=== PATIENT | female | born 1955 | race Caucasian/White ===

== ENCOUNTER 2022-11-28 06:12 | Observation (INO) ==
--- NOTE | 2022-11-16 11:58 | PAT Medication Instructions ---
Medication Instructions Date of Service November 16, 2022 Home Medications Medication Instructions Recorded Dee Garcia #1 ea 11/10/22 estradiol 1 mg tablet 1 mg PO HS fluvoxamine 100 mg tablet 100 mg PO TID meloxicam 15 mg tablet 15 mg PO QAM simvastatin 5 mg tablet 5 mg PO HS vit C,E,zinc,copper-jzzes5z 250 mg-lutein 5 mg-zeaxanthin 1 mg capsule (Adult 50 Plus Eye Health) 1 cap PO DAILY Cbd Gummies 1 dose PO QAM calcium carbonate 600 mg calcium (1,500 mg) tablet (Calcium) 1,200 mg PO QAM lorazepam 1 mg tablet 1 mg PO BID PRN Anxiety multivitamin 1 tab PO QAM peg [id number]-zduomnud 1 %-0.2 %-0.2 % eye drops 2 drp ophthalmic (eye) BID PRN Dry Eyes ASK your surgeon for instructions meloxicam 15 mg tablet 15 mg PO QAM ASK your prescriber and surgeon estradiol 1 mg tablet 1 mg PO HS STOP taking 2 weeks before surgery vit C,E,zinc,copper-chwfm3s 250 mg-lutein 5 mg-zeaxanthin 1 mg capsule (Adult 50 Plus Eye Health) 1 cap PO DAILY DO NOT take the morning of surgery Cbd Gummies 1 dose PO QAM calcium carbonate 600 mg calcium (1,500 mg) tablet (Calcium) 1,200 mg PO QAM multivitamin 1 tab PO QAM Take morning of surgery With a small sip of water, OTHERWISE NOTHING TO EAT OR DRINK AFTER MIDNIGHT: fluvoxamine 100 mg tablet 100 mg PO TID lorazepam 1 mg tablet 1 mg PO BID PRN Anxiety (if needed) peg [id number]-agrmkvoj 1 %-0.2 %-0.2 % eye drops 2 drp ophthalmic (eye) BID PRN Dry Eyes (if needed) Take evening before surgery fluvoxamine 100 mg tablet 100 mg PO TID simvastatin 5 mg tablet 5 mg PO HS lorazepam 1 mg tablet 1 mg PO BID PRN Anxiety (if needed) peg 878-ohzunyfgtwps-lhvvrvoo 1 %-0.2 %-0.2 % eye drops 2 drp ophthalmic (eye) BID PRN Dry Eyes (if needed) Other Notes If you have any questions please call us at [phone] or [phone] or [phone] or [phone]
--- NOTE | 2022-11-18 11:44 | Anesthesiology Consultation ---
Date of Service November 18, 2022 Assessment & Plan (1) Encounter for pre-operative examination: - COVID screening: Per assessment on 11/18: No known COVID-19 positive contacts or current COVID-19 related symptoms. Travel screen negative. Patient vaccinated. At surgeon discretion if preop Covid testing being done. - Anesthesia concern: Patient does not wish to "hear or feel" anything perioperatively- requests deeper sedation if possible. Questions/concerns addressed. To discuss further AM DOS. - Outpatient joint assessment: Pt currently scheduled for inpatient pathway. If surgeon requests review for outpatient joint pathway, determination for eligibility would be pending LBBB evaluation. - Abnormal preop EKG: Per patient, remote hx of LBBB diagnosis many years ago (approximately 15 years ago) s/p unremarkable cardiac evaluation and stress testing. Attempts to obtain previous cardiac evaluation/stress testing unsuccessful. Patient scheduled for preop cardiac evaluation ([facility], appt 11/23). Chart Review Chart Review: Patient seen in Pre Admission Testing Teaching & Discussion Pre-Anesthesia Teaching/Discussion Notes: Instructed NPO after midnight before surgery,except medications with 15 cc of water. Medication instructions provided according to the PAT guidelines. History Surgery Operation Date: 11/28/22 08:50 Proposed Procedures p Right Total Knee Arthroplasty - Ebenezer Molina MD Height/Weight Height: 5 ft 10 in Weight: 95.3 kg Allergies Allergy/AdvReac Type Severity Reaction Status Date / Time latex Allergy Unknown Rash Verified 11/16/22 10:07 Penicillins Allergy Unknown Hives Verified 11/16/22 10:05 triethanolamine Allergy Unknown Rash Verified 11/16/22 10:07 bandaid Allergy Unknown "Removes Uncoded 11/16/22 11:18 skin" Topical antibiotics Allergy Itching Uncoded 11/18/22 12:10 Medications Home Medications Medication Instructions Recorded Confirmed Last Taken estradiol 1 mg tablet 1 mg PO HS 06/11/20 11/16/22 Unknown fluvoxamine 100 mg tablet 100 mg PO TID 06/11/20 11/16/22 Unknown meloxicam 15 mg tablet 15 mg PO QAM 06/11/20 11/16/22 Unknown simvastatin 5 mg tablet 5 mg PO HS 06/11/20 11/16/22 Unknown vit C,E,zinc,copper-awngu7q 250 1 cap PO DAILY 06/11/20 11/16/22 Unknown mg-lutein 5 mg-zeaxanthin 1 mg capsule (Adult 50 Plus Eye Health) Dee Walker #1 ea 11/10/22 11/10/22 Unknown Cbd Gummies 1 dose PO QAM 11/16/22 11/16/22 Unknown calcium carbonate 600 mg calcium 1,200 mg PO QAM 11/16/22 11/16/22 Unknown (1,500 mg) tablet (Calcium) lorazepam 1 mg tablet 1 mg PO BID PRN Anxiety 11/16/22 11/16/22 Unknown multivitamin 1 tab PO QAM 11/16/22 11/16/22 Unknown peg [id number]-[id number]-xkcgvrqs 1 2 drp ophthalmic (eye) BID PRN Dry 11/16/22 11/16/22 Unknown %-0.2 %-0.2 % eye drops Eyes Past Medical History Medical History Acid reflux Anxiety History of COVID-2019- loss of taste > resolved History of left bundle branch block (LBBB) Per patient, noted remotely approximately 15 years ago s/p unremarkable cardiac evaluation including a stress test Hx of renal calculi Left knee DJD OCD (obsessive compulsive disorder) Sensitive skin "cannot tolerate fragrances" > itching Exercise / Class Metabolic Activity II 4-5 Yardwork/Stairs/Walk up hill (one FS (no CP, no SOB)) Past Family History Family History Other No family history of adverse response to anesthesia Past Surgical History Surgical History H/O arthroscopy of right knee H/O breast surgery Fibroids removal H/O: hysterectomy History of appendectomy History of removal of both ovaries Hx of tonsillectomy Hx of wisdom tooth extraction Past Anesthesia History No Hx of Anesthesia Complications and No Family Hx of Anesthesia Complications History of PONV No Hx of PONV and No Hx of Motion Sickness Social History Smoking Status: Never smoker Do You Dip or Chew Tobacco: No Hx Alcohol Use: Yes (one or twice per month) Hx Substance Use: No substance use type: does not use Review of Systems Patient denies chest pain, shortness of breath, dyspnea on exertion, fever, chills, cough, wheezing, palpitations. Physical Exam Vital Signs VITALS BP 124/88 P 72 TEMP 97.9 SP02 98%RA RESP 16 PHYSICAL Full cervical extension range of motion. Full TMJ range of motion. TMD 3 finger breaths Mallampati Score 2 Dentition: intact, lower left side cap Lungs: clear throughout to auscultation Cardiac: regular rate and rhythm, no murmurs noted Spine: normal Carotid arteries: negative bruit Extremities: no LE edema Lab Results Anesthesia Preop Results Results Anesthesia Widget: WBC 7.53 K/ul (4.8-10.8) 11/18/22 Hgb 14.2 g/dl (12.0-16.0) 11/18/22 Hct 43.4 % (37.0-47.0) 11/18/22 Plt 240 K/uL (130-400) 11/18/22 Na 141 mmol/L (136-145) 11/18/22 K 4.4 mmol/L (3.5-5.1) 11/18/22 Cl 107 mmol/L (98-107) 11/18/22 CO2 30 mmol/L (21-32) 11/18/22 BUN 20 mg/dl (6-23) 11/18/22 Creat 0.71 mg/dl (0.6-1.2) 11/18/22 Glucose Level 96 mg/dl (70-99(Fasting)) 11/18/22 PT 10.6 Seconds (9.0-12.0) 11/18/22 PTT 25.4 Seconds (21.0-31.0) 11/18/22 INR 1.0 (0.9-1.1) 11/18/22 Blood Type A Negative 11/18/22 Antibody Screen NEGATIVE 11/18/22 Testing Electrocardiogram Date: 11/18/22 NSR at 64bpm. LAD. LBBB. Chest X-Ray Date: 11/18/22 FINDINGS: No lines and tubes are seen. Calcified aortic knob is seen. The lungs are clear. No evidence of pleural effusion or pneumothorax. IMPRESSION: No acute chest disease. COVID-19 Risk Screen Screening Information COVID-19 Screen Date: 11/18/22 Exposure 21 Days Family/Household +COVID Last 21 Days: No Exposure 10 Days Any COVID Exposure Last 10 Days: No Symptoms Last 10 Days Experienced COVID Sx Last 10 Days: No + COVID 0-90 Days COVID + in Last 0-90 Days: No
[~2022-11-28 06:12] MED LIST: ACETAMINOPHEN 500 MG TAB PO SCH; ALLERGY Noted to ORDERED Medication SCH; BUPIVACAINE LIPOSOME/PF 266 MG, BUPIVACAINE/EPINEPHRINE 50 ML, SODIUM CHLORIDE 0.9% PF ... INFIL SCH; CeleBREX 200 MG CAP PO SCH; FAMOTIDINE 20 MG TAB PO SCH; LR 15ML/HR IV SCH; LR 60ML/HR IV SCH; METOCLOPRAMIDE HCL 10 MG TABLET PO SCH; Scopolamine 1 MG TDSY TD SCH; TRANEXAMIC ACID 1,000 MG **IV Intra-op IV SCH; ceFAZolin 2000MG 2,000 MG/15 ML SYR IV SCH; dexAMETHasone**PF** 10 MG/ML VIAL IV SCH
[2022-11-28] MEDS ORDERED: ROPIVACAINE 0.5% 5 MG/ML 30 ML VIAL ONE (06:18)
[2022-11-28] MEDS ORDERED: BUPIVACAINE 0.5 % 5 MG/1 ML PF 10ML VIAL ONE (06:18)
--- NOTE | 2022-11-28 06:54 | History & Physical Bridge Note ---
Date of Service November 28, 2022 History & Physical Bridge Note I have examined the patient, reviewed the History & Physical and in the interval since the performance of the History & Physical I have noted the following changes of clinical significance: no changes noted
[2022-11-28] MEDS ORDERED: Nursing to Pharmacy Communication SCH (07:15)
[2022-11-28] MEDS ORDERED: MIDAZOLAM HCL 1 MG/ML 2ML VIAL ONE (07:25)
[2022-11-28] MEDS ORDERED: ATROPINE SULFATE 0.1 MG/ML 10ML SYR IV PRN (08:11)
[2022-11-28] MEDS ORDERED: ePHEDrine sulfate 50 MG/ML AMP IV PRN (08:11)
[2022-11-28] MEDS ORDERED: fentaNYL citrate PF 100 MCG/2 ML VIAL IV PRN (08:11)
[2022-11-28] MEDS ORDERED: ONDANSETRON INJ 2 MG/ML 2 ML VIAL IV PRN ×2 (08:11→12:20)
[2022-11-28] MEDS ORDERED: BUPIVACAINE/EPINEPHRINE 0.25% 1:200,000 30 ML VIAL ONE (08:47)
[2022-11-28] MEDS ORDERED: SODIUM CHLORIDE 0.9% PF 50 ML VIAL ONE (08:47)
[2022-11-28] MEDS ORDERED: BUPIVACAINE LIPOSOME 1.3% 266 MG/20 ML VIAL ONE (08:47)
[2022-11-28] MEDS ORDERED: PROPOFOL IV EMULSION 10 MG/ML 20 ML VIAL IV ONE (08:53)
[2022-11-28] MEDS ORDERED: GLYCOPYRROLATE 0.2 MG/ML VIAL ONE (09:38)
--- NOTE | 2022-11-28 11:01 | Operative Report ---
PG Post Operative Report Pre & Post Diagnosis Operation Date: 11/28/22 08:50 Pre-Op Diagnosis: Right Knee Degenerative Joint Disease Post-Op Diagnosis: Right Knee Degenerative Joint Disease I identified the patient and participated in the time-out.: Yes Procedure Operation Date: 11/28/22 08:50 Actual Procedures p Right Total Knee Arthroplasty(Right) - Ebenezer Molina MD Surgeon Ebenezer Molina MD Dump Attendant Derek Guy PA-C Estimated Blood Loss 50 Findings Consistent with Post-Op Diagnosis Operative findings were advanced right knee DJD. She had extensive grade 4 bjfq-ex-kyzr disease of the lateral compartment with a valgus deformity to her knee. Some moderate degenerative changes elsewhere. Specimens Right knee sent for pathology Drains None Anesthesia Type Spinal Complications none Disposition Accompanied Patient To Recovery: No Indications Patient 67-year-old female said a several year history of increased right knee pain discomfort describes gotten worse over time patient been to extensive conservative treatments became less successful over time. She is actually planned to have her knee replaced sometime ago but had to postpone this due to her 's illness. He is now stabilized and she is elected proceed with total knee arthroplasty. Description of Procedure Operative implants consist of: 1 Biomet Vanguard size 62.5 right posterior stabilized femoral component. 2. Biomet size 67 tibial tray. 3. 10 mm posterior large polyethylene insert. 4. 28 x 8 all poly patella. The patient was taken to the operating, identified, placed on the operating table supine position protectors were properly padded. IV antibiotics tried by anesthesia team. A spinal anesthetic and abductor canal block had been provided in the holding area. A Hodge catheter was placed in sterile fashion. Right thigh tourniquet was then placed in the right lower extremity was then prepped and draped in usual sterile fashion. The right leg was elevated exsanguinated with use of an Esmarch and the tourniquet was placed at 300 mmHg. An anterior approach of the right knee was then performed to longitudinal incision centered over the patella. Sharp dissection scalp through subcutaneous tissue down above the extensor mechanism. A medial parapatellar arthrotomy incision was made. Some subperiosteal dissection was carried out medially. The fat pad was dissected from Neath patella tendon. Lateral patellofemoral ligament was released. Patella subluxated laterally and knee was flexed with the osteophytes taken on distal femur. ACL PCL were then released from distal femur the tibia subluxated anteriorly. External tibial alignment jig was then placed in the interface of the tibia and adjusted 12 mm medially. Proximal tibial cut was made remove about 3 to 4 mm of bone from the medial side. The tibia was sized to a 67. I did downsize this a bit in order to get proper rotation. Attention drawn the femur. The distal femur on the sharp drop with intramedullary canal was suction. A right 5 degree valgus cutting guide was placed. This femoral cutting block was pinned in place. Distal femoral cut was made to take an additional 3 mm bone off distal femur. The knee was then brought out in extension I did some pie crusting the IT band in order to equalize extension gap. The knee was then again flexed. The femur was then sized to a size 62.5. The AP cutting block was pinned parallel to the epicondylar axis which was 4 degrees of external rotation. Anterior cut, anterior chamfer, posterior cut, posterior chamfer cuts were made. The box cutting guide was placed in just slight lateral box cut was made. The knee was flexed. The remnants of the medial and lateral menisci were excised with the osteophytes taken off the posterior aspect the femur. A trial femoral component was placed. Tibial tray was pinned in maximum external rotation and the drill and stem punch were used to create defect in proximal tibia for the tibial tray. The knee was then trialed and the 10 mm insert fit most appropriately. Attention drawn the patella. The patella is cleaned of all soft tissues. Patella thickness measured 22 mm in thickness was cut down to 13. It was sized to a size 28 patella. The lug holes were drilled for the 28 patella. The lateral osteophytes removed. Patella button was placed. Knee was taken through range of motion patella tracked nicely with no thumbs test. Attention drawn to placing permanent components. Nupathe all trial components were removed. A bone plug was placed in the distal femur to limit blood loss. Double batch Palacos G cement was mixed. Biomet Vanguard size 62.5 right posterior femoral component, size 67 tibial tray, a 10 mm post stabilized polyethylene insert, and a 28 x 8 all Paller patella then cemented in place. New spreadout in full extension till cement hardened. Final cement check was then performed. The pericapsular tissues were injected with total 100 cc of combination of 20 cc Exparel, 30 cc normal saline, 50 cc of quarter percent Marcaine with epinephrine. Patient did receive 1 g tranexamic acid. Tourniquet was then let down for final tourniquet time 56 minutes. Hemostasis reduced electrocautery. Extensor mechanism closed with combination 1 PDS suture #1 Vicryl suture in mlsmak-sp-jmyth fashion. Extensor mechanism checked found to be intact the subcutaneous tissue then closed with 2 Dexon suture in buried fashion skin was closed skin natalie. Leg was then cleaned and dried and sterile dressed with Xeroform, 4 fours, sterile cast padding, Rio bandage were applied. Patient transferred to the recovery room in stable condition. The patient tolerated the procedure well and there were no c omplications. Derek Guy, my physician tutoring assistant, was present for the entire procedure. His assistance was essential and required for appropriate patient positioning, prepping and draping, surgical exposure, performing the technical details of the operation, placement the implants, closure of the wound, and placement of the sterile bandage. I attest to the content of the Intraoperative Record and any orders documented therein. Any exceptions are noted below.
--- NOTE | 2022-11-28 11:12 | XRay Report ---
TWO VIEWS RIGHT KNEE CLINICAL HISTORY: Postoperative examination. FINDINGS: AP and crosstable lateral portable views of the right knee are obtained. A right knee arthr oplasty is in near anatomic alignment. There has been undersurface remodeling of the patella. No acut e fracture is seen. There are expected postoperative changes around the knee including skin clips, so ft tissue edema, and subcutaneous gas. IMPRESSION: Expected postoperative changes status post right knee arthroplasty. No acute fracture is seen. ACT 112: Negative or not required by law. Electronically signed by: Naren Crane M.D. 11/28/2022 11:11 AM
[2022-11-28] MEDS ORDERED: PNEUMOCOCCAL POLYSACCHARIDES 25 MCG/0.5 ML VIAL/SYR IM ONE (12:16)
[2022-11-28] MEDS ORDERED: METOCLOPRAMIDE HCL INJ 5 MG/ML 2 ML VIAL IV PRN (12:20)
[2022-11-28] MEDS ORDERED: LORazepam 1 MG TAB PO PRN (12:20)
[2022-11-28] MEDS ORDERED: HYDROmorphone INJ 0.5 MG/0.5 ML SYR IV PRN (12:20)
[2022-11-28] MEDS ORDERED: ALUMINUM/MAGNESIUM SUSP 30 ML UDC PO PRN (12:20)
[2022-11-28] MEDS ORDERED: bisacodyL 10 MG SUPP PR PRN (12:20)
[2022-11-28] MEDS ORDERED: MAGNESIUM HYDROXIDE SUSP 30 ML UDC PO PRN (12:20)
[2022-11-28] MEDS ORDERED: NALOXONE HCL 0.4 MG/1 ML VIAL/CARP IV PRN (12:20)
[2022-11-28] MEDS ORDERED: ARTIFICIAL TEARS OP PRN (12:47)
--- NOTE | 2022-11-28 13:00 | Anesthesiology Progress Note ---
Date of Service November 28, 2022 Anesthesia Post Procedure Vital Signs Vital Signs: Temp Pulse Pulse Resp BP Pulse Ox O2 Del Method 11/28/22 12:42 97.0 F L 64 20 138/74 97 Room Air 11/28/22 12:11 97.3 F L 73 18 130/76 97 Room Air 11/28/22 11:55 80 13 143/72 H 97 Room Air 11/28/22 11:45 81 13 137/68 97 Room Air 11/28/22 11:35 97.5 F L 87 14 136/75 98 Room Air 11/28/22 11:25 89 13 143/71 H 100 Oxymask 11/28/22 11:15 97 H 19 138/70 100 Oxymask 11/28/22 11:05 113 H 17 145/71 H 95 Oxymask 11/28/22 10:55 97.3 F L 118 H 14 140/69 98 Oxymask 11/28/22 07:19 98.2 F 75 20 149/79 H 100 Room Air O2 Flow Rate 11/28/22 12:42 11/28/22 12:11 11/28/22 11:55 11/28/22 11:45 11/28/22 11:35 11/28/22 11:25 4 11/28/22 11:15 4 11/28/22 11:05 4 11/28/22 10:55 6 11/28/22 07:19 Transfer of Care Handoff Completed per policy Notes Mental Status: alert / awake / arousable and participated in evaluation Patient Amnestic to Procedure: Yes Nausea / Vomiting: adequately controlled Pain: adequately controlled Airway Patency, RR, SpO2: stable & adequate BP & HR: stable & adequate Hydration State: stable & adequate Neuraxial Anesthesia: was administered and sensory block is resolving Anesthetic Complications: no major complications apparent and Pt Satisfied with anesthetic care
[2022-11-28] MEDS: KETOROLAC TROMETHAMINE 15 MG/ML VIAL IV SCH ×2 (13:02→18:05)
[2022-11-28] MEDS: SODIUM CHLORIDE 0.9% 1000ML 1,000 ML IV SCH (13:03)
[2022-11-28] MEDS: fluvoxaMINE MALEATE 50 MG TAB PO SCH ×2 (13:52→20:06)
[2022-11-28] MEDS: ACETAMINOPHEN 500 MG TAB PO SCH ×2 (13:53→20:05)
[2022-11-28] MEDS: Scopolamine CHECK PATCH PLACEMENT SCH (16:38)
[2022-11-28] MEDS: ASCORBIC ACID 500 MG TAB PO SCH (16:39)
[2022-11-28] MEDS: ceFAZolin 2000MG 2,000 MG/15 ML SYR IV SCH (16:42)
[2022-11-28] MEDS ORDERED: TRANEXAMIC ACID / 0.7% NACL 1,000 MG/100 ML BAG IV SCH (17:00)
[2022-11-28] MEDS: DOCUSATE SODIUM 100 MG CAP PO SCH (19:21)
[2022-11-28] MEDS: oxyCODONE HCL IR 5 MG TAB (IMMEDIATE RELEASE) PO PRN (20:06)
[2022-11-28] MEDS: ASPIRIN 81 MG ECTAB PO SCH (20:06)
[2022-11-28] MEDS ORDERED: estradioL 1 MG TAB PO SCH (21:00)
[2022-11-28] MEDS ORDERED: SIMVASTATIN 5 MG TAB PO SCH (21:00)
[2022-11-28] MEDS ORDERED: SENNA 8.6 MG TAB PO SCH ×2 (21:00)
[2022-11-29] MEDS: KETOROLAC TROMETHAMINE 15 MG/ML VIAL IV SCH ×2 (00:01→05:38)
[2022-11-29] MEDS: oxyCODONE HCL IR 5 MG TAB (IMMEDIATE RELEASE) PO PRN ×2 (00:02→11:10)
[2022-11-29] MEDS: ceFAZolin 2000MG 2,000 MG/15 ML SYR IV SCH (00:02)
[2022-11-29] MEDS: Scopolamine CHECK PATCH PLACEMENT SCH ×2 (00:21→08:03)
[2022-11-29] MEDS: SODIUM CHLORIDE 0.9% 1000ML 1,000 ML IV SCH (00:21)
[2022-11-29 07:32] LABS: Hematocrit (blood only) 38.9 % (37.0-47.0); Hemoglobin 13.3 g/dl (12.0-16.0); Mean Corpuscular Hemoglobin 30.7 pg (25.0-34.0); Mean Corpuscular Hgb Conc 34.2 g/dL (32.0-36.0); Mean Corpuscular Volume 89.8 fL (80.0-100.0); Mean Platelet Volume 10.1 fL (9.4-12.4); Platelet Count 262 K/uL (130-400); RDW Coefficient of Variation 13.1 % (11.5-14.5); RDW Standard Deviation 43.4 fL (36.4-46.3); Red Blood Count 4.33 M/uL (4.20-5.40); White Blood Count 15.79 K/ul (4.8-10.8)
[2022-11-29 07:55] LABS: Calcium 8.4 mg/dl (8.6-10.3); Creatinine Clr Calc Pharmacy 91.6 ml/min; Est GFR (African American) 97.2 ml/min; Est GFR (Non-African American) 83.8 ml/min; Potassium 3.9 mmol/L (3.5-5.1)
[2022-11-29] MEDS: DOCUSATE SODIUM 100 MG CAP PO SCH (07:58)
[2022-11-29] MEDS: ACETAMINOPHEN 500 MG TAB PO SCH (07:59)
[2022-11-29] MEDS ORDERED: dexAMETHasone 10 MG in SYRINGE 0 ML IV SCH (08:00)
[2022-11-29] MEDS: ASPIRIN 81 MG ECTAB PO SCH (08:00)
[2022-11-29] MEDS: ASCORBIC ACID 500 MG TAB PO SCH (08:00)
[2022-11-29] MEDS: fluvoxaMINE MALEATE 50 MG TAB PO SCH (08:02)
[2022-11-29] MEDS ORDERED: CBD GUMMIES PO SCH (09:00)
[2022-11-29] MEDS ORDERED: CALCIUM CARBONATE 1250MG TAB PO SCH (09:00)
[2022-11-29] MEDS ORDERED: NON-FORMULARY MEDICATION (Multivitamin Tablet) PO SCH (09:00)
[2022-11-29] MEDS ORDERED: CEROVITE ADV FORMULA TAB PO SCH (09:00)
[2022-11-29] MEDS ORDERED: MULTIVITAMIN TAB PO SCH (09:00)
--- NOTE | 2022-11-29 09:05 | Orthopedic Progress Note ---
Date of Service November 29, 2022 Assessment & Plan (1) Aftercare following right knee joint replacement surgery: 1. DVT prophylaxis including thigh-high teds SCDs and aspirin twice a day. 2. Pain control doing well with current pain regimen 3. PT OT. She is weightbearing as tolerated. Right total knee protocol. She did well in therapy today. 4. Disposition, plan to discharge patient home today with home health. Subjective . 67-year-old female postop day 1 from right knee replacement. She is doing reasonably well. Got a little bit nauseated and a little lightheaded first time she got up today but doing better. Pain is reasonably well controlled. Therapy went well. No chest pain or shortness of breath. Hoping to go home. Review of Systems All systems reviewed & are unremarkable except as noted in HPI & below. Physical Exam . Physical examination reveals a pleasant middle-aged female. She is sitting up in her bedside talking to the therapist. Examination of the right leg reveals the dressing to be clean dry and intact. She can dorsiflex and plantarflex her foot appropriately. She got good straight leg raise. She is neurologically intact. Respiratory normal respiratory effort, lungs clear to auscultation Cardiovascular RRR, no murmur, no edema Results & Data Results & Data Laboratory Results . Laboratory results reveal hemoglobin 13.3 hematocrit 38.9. Electrolytes are stable. Diagnostic Findings . PG Care Time/CCT Total # of Minutes Spent Total Time Spent with Patient: Total time spent is greater than 50% in coordination of care (as documented) at patient's floor/unit and/or counseling patient: Coding Level of Care Code 61623 Post Operative Follow-Up Diagnoses Aftercare following right knee joint replacement surgery Z47.1; Z96.651
== END 2022-11-29 11:48 | disposition home health service (06) ==
LOC: ASU 06:12 → 3E 06:12